=== PATIENT | female | born 1965 | race African-American/Black ===

== ENCOUNTER 2017-01-27 14:52 | Emergency (ER) | payer BC ==
[~2017-01-27 14:52] MED LIST: ASAB PO; FISH-EPA1000 MG PO; HYDROCHLOROT25 MG PO; NORV10 PO; VITAMIN B-121000 MC1 SL
== END 2017-01-27 15:00 | disposition home or self-care (01) ==
LOC: ER 14:52
PROC: 2W3LX1Z Immobilization of Right Lower Extremity using Splint (ICD-10-PCS; principal; 2017-01-27)
DX: M25.561 Pain in right knee (principal); I10 Essential (primary) hypertension; Z91.013 Allergy to seafood; Z79.82 Long term (current) use of aspirin; Z79.899 Other long term (current) drug therapy
CPT/HCPCS: 96372; 99283